=== PATIENT | female | born 1955 | race Caucasian/White ===

== ENCOUNTER 2016-07-02 11:48 | Inpatient (IN) | payer MEDICAID ==
[~2016-07-02] VITALS: Ht 165.1 cm; Wt 126.0 kg
[~2016-07-02 11:48] MED LIST: ALBU0.084 IN; ASPI-264 PO; DOCU-94 PO; GLIP-115 PO; HYDR-3028 PO; LISI10TA6 PO; OMEP20TA44 PO; [UNRECOGNIZED DRUG - OTHER] PO
[2016-07-02] MEDS ORDERED: ONDANSETRON HCL 4 MG/2 ML VIAL IV ONE (12:00)
[2016-07-02] MEDS ORDERED: MORPHINE SULFATE 4 MG/ML SYRG IV ONE (12:00)
[2016-07-02 13:09] LABS: Basophils # (auto) 0 uL; Basophils % (auto) 0.5 % (0.0-2.0); Eosinophils # (auto) 0.2 uL; Eosinophils % (auto) 2.2 % (0.0-7.0); Hematocrit 36.7 % (36.0-46.0); Hemoglobin 12.1 g/dL (12.2-16.2); Lymphocytes # (auto) 1.7 uL; Lymphocytes % (auto) 20.2 % (10.0-50.0); Mean Corpuscular Hemoglobin 28.1 pg (28.0-32.0); Mean Corpuscular Hgb Conc. 32.9 g/dL (32.0-36.0); Mean Corpuscular Volume 85.5 fL (80.0-100.0); Mean Platelet Volume 8.5 fL (7.4-10.4); Monocytes % (auto) 11.9 % (0.0-12.0); Neutrophils # (auto) 5.6 uL; Neutrophils % (auto) 65.2 % (37.0-80.0); Platelet Count (auto) 374 10^3/uL (140-450); Red Cell Distribution Width 14.3 % (11.6-16.0); White Blood Cell 8.6 10^3/uL (4.4-10.8)
[2016-07-02 13:14] LABS: Albumin 3.9 g/dL (3.4-5.0); Anion Gap 12 (5-15); Aspartate Aminotransferase 14 U/L (15-37); BUN/Creatinine Ratio 13.4; Blood Urea Nitrogen 16 mg/dL (7-18); Calcium 9.1 mg/dL (8.5-10.1); Carbon Dioxide 25 mmol/L (21-32); Chloride 105 mmol/L (98-107); GFR African American 60 mL/min; GFR Non-African American 49 mL/min; Glucose 127 mg/dL (74-106); Magnesium 2.4 mg/dL (1.6-2.6); Potassium 3.8 mmol/L (3.5-5.1); Sodium 142 mmol/L (136-145)
[2016-07-02 13:19] LABS: Alkaline Phosphatase 81 U/L (45-117); B-Type Natriuretic Peptide 38.53 pg/mL (0-100); Bilirubin, Total 0.6 mg/dL (0.2-1.0); Total Protein 7.5 g/dL (6.4-8.2)
[2016-07-02 13:28] LABS: INR 0.95 (0.9-1.15); Prothrombin Time 10.3 sec (9.37-12.3)
[2016-07-02] MEDS ORDERED: DEXTROSE (50%) 50ML SYRG IV PRN (13:30)
[2016-07-02] MEDS ORDERED: POTASSIUM CHL 10 Meq TABLET PO ONE (13:45)
[2016-07-02] MEDS ORDERED: ZOLPIDEM TARTRATE 5 MG TAB PO PRN (13:45)
[2016-07-02] MEDS ORDERED: ONDANSETRON HCL 4 MG/2 ML VIAL IV PRN (13:45)
[2016-07-02] MEDS ORDERED: FUROSEMIDE 40 MG/4 ML VIAL IV ONE (13:45)
[2016-07-02] MEDS ORDERED: NITROGLYCERIN 0.4 MG SL TAB SL PRN ×2 (13:45)
[2016-07-02] MEDS ORDERED: MORPHINE SULF INJ 2 MG/ML SYRINGE 1ML IV PRN (13:45)
[2016-07-02] MEDS ORDERED: ACETAMINOPHEN 325 MG TAB PO PRN (13:45)
[2016-07-02] MEDS ORDERED: PANTOPRAZOLE 40 MG TAB PO ONE (14:00)
[2016-07-02] MEDS ORDERED: DOCUSATE SOD 100 MG CAP PO ONE (14:00)
[2016-07-02] MEDS ORDERED: LISINOPRIL 10 MG TAB PO ONE (14:00)
[2016-07-02] MEDS ORDERED: ASPirin-EC 325mg tab PO ONE (14:15)
[2016-07-02] MEDS ORDERED: CLOPIDOGREL BISULFATE 75 MG TAB PO ONE (14:15)
[2016-07-02] MEDS: LORazepam 0.5 MG TAB PO PRN ×2 (14:27→20:35)
[2016-07-02] MEDS: SODIUM CHLOR 0.9% PF (SALINE LOCK) 10ML VIAL IV SCH ×2 (14:27→22:06)
[2016-07-02 16:00] VITALS: BP 126/54
[2016-07-02] MEDS: InsuLIN REG 1unit/0.01ml Soln (100units/ml) SC SCH ×2 (16:46→22:00)
[2016-07-02] MEDS: ACCU-CHEK COMFORT CURVE STRIP VI SCH ×2 (16:46→22:06)
[2016-07-02 17:00] VITALS: BP_SYST 126; BP_SYST 148; BP_DIAS 102; BP_DIAS 54
[2016-07-02] MEDS: MORPHINE SULF INJ 2 MG/ML SYRINGE 1ML IV PRN (17:41)
[2016-07-02] MEDS: ALBUTEROL SULF 2.5 MG/0.5ML(0.5%) NEB SOLN NEB SCH (17:55)
[2016-07-02] MEDS ORDERED: cloNIDine HCL 0.1 MG TAB PO PRN (20:45)
[2016-07-02 22:00] VITALS: BP 101/57
[2016-07-02] MEDS: CARVEDILOL 3.125 MG TAB PO SCH (22:06)
[2016-07-02] MEDS: ATORVASTATIN 20 MG TAB PO SCH (22:06)
[2016-07-02 23:00] LABS: Urine Bilirubin Negative (Negative); Urine Blood Negative /uL (Negative); Urine Ca Oxalate Crystal MOD (None Seen); Urine Color Yellow (Yellow); Urine Glucose Normal (Normal); Urine Hyaline Cast FEW /lpf (0 - 2); Urine Ketone Negative (Negative); Urine Mucus FEW (None Seen); Urine Nitrite Negative (Negative); Urine RBC <1 /hpf (0 - 4); Urine Squamous Epithelial Cell FEW /hpf (<5); Urine pH 5.5 (5.0-8.0)
[2016-07-03] VITALS (7 sets, daily range): BP systolic 98–131; BP diastolic 51–62
[2016-07-03] MEDS: ALBUTEROL SULF 2.5 MG/0.5ML(0.5%) NEB SOLN NEB SCH ×4 (01:24→18:00)
[2016-07-03] MEDS: SODIUM CHLOR 0.9% PF (SALINE LOCK) 10ML VIAL IV SCH ×3 (06:09→22:06)
[2016-07-03] MEDS: glipiZIDE 5 MG TAB PO SCH (06:40)
[2016-07-03] MEDS: InsuLIN REG 1unit/0.01ml Soln (100units/ml) SC SCH ×4 (06:40→22:00)
[2016-07-03] MEDS: ACCU-CHEK COMFORT CURVE STRIP VI SCH ×4 (06:40→22:07)
[2016-07-03 06:44] LABS: Basophils # (auto) 0.1 uL; Basophils % (auto) 0.7 % (0.0-2.0); Eosinophils # (auto) 0.3 uL; Eosinophils % (auto) 3.8 % (0.0-7.0); Hematocrit 35.3 % (36.0-46.0); Hemoglobin 11.7 g/dL (12.2-16.2); Lymphocytes # (auto) 2.1 uL; Lymphocytes % (auto) 26.2 % (10.0-50.0); Mean Corpuscular Hemoglobin 28.6 pg (28.0-32.0); Mean Corpuscular Hgb Conc. 33.3 g/dL (32.0-36.0); Mean Corpuscular Volume 86.1 fL (80.0-100.0); Mean Platelet Volume 8.6 fL (7.4-10.4); Monocytes # (auto) 0.8 uL; Monocytes % (auto) 9.6 % (0.0-12.0); Neutrophils # (auto) 4.8 uL; Neutrophils % (auto) 59.7 % (37.0-80.0); Platelet Count (auto) 359 10^3/uL (140-450); Red Cell Distribution Width 14.5 % (11.6-16.0)
[2016-07-03 07:14] LABS: Albumin 3.7 g/dL (3.4-5.0); BUN/Creatinine Ratio 13.8; Bilirubin, Total 0.7 mg/dL (0.2-1.0); Calcium 9.2 mg/dL (8.5-10.1); Magnesium 2.6 mg/dL (1.6-2.6); Total Protein 7.2 g/dL (6.4-8.2)
[2016-07-03] MEDS: FUROSEMIDE 40 MG/4 ML VIAL IV SCH (09:49)
[2016-07-03] MEDS: ASPirin-EC 325mg tab PO SCH (09:49)
[2016-07-03] MEDS: DOCUSATE SOD 100 MG CAP PO SCH (09:50)
[2016-07-03] MEDS: CLOPIDOGREL BISULFATE 75 MG TAB PO SCH (09:50)
[2016-07-03] MEDS: PANTOPRAZOLE 40 MG TAB PO SCH (09:50)
[2016-07-03] MEDS: POTASSIUM CHL 10 Meq TABLET PO SCH (09:51)
[2016-07-03] MEDS: CARVEDILOL 3.125 MG TAB PO SCH ×2 (09:51→22:00)
[2016-07-03] MEDS: LISINOPRIL 10 MG TAB PO SCH (09:52)
[2016-07-03] MEDS ORDERED: BUMETANIDE 1 MG TAB PO SCH (10:00)
[2016-07-03] MEDS ORDERED: BUMETANIDE 2 MG TABLET PO SCH (10:00)
[2016-07-03] MEDS ORDERED: BUMETANIDE 1 MG TAB PO ONE (10:15)
[2016-07-03] MEDS: ATORVASTATIN 20 MG TAB PO SCH (22:07)
[2016-07-03] MEDS: MORPHINE SULF INJ 2 MG/ML SYRINGE 1ML IV PRN (22:08)
[2016-07-03] MEDS: LORazepam 0.5 MG TAB PO PRN (23:12)
[2016-07-04] VITALS (7 sets, daily range): BP systolic 110–155; BP diastolic 56–73
[2016-07-04] MEDS: HYDROcodone-ACET 10/325MG TAB PO PRN ×3 (01:52→21:34)
[2016-07-04] MEDS: ALBUTEROL SULF 2.5 MG/0.5ML(0.5%) NEB SOLN NEB SCH ×4 (06:00→18:16)
[2016-07-04] MEDS: SODIUM CHLOR 0.9% PF (SALINE LOCK) 10ML VIAL IV SCH ×3 (06:27→21:33)
[2016-07-04] MEDS: glipiZIDE 5 MG TAB PO SCH (06:28)
[2016-07-04] MEDS: ACCU-CHEK COMFORT CURVE STRIP VI SCH ×4 (06:29→21:34)
[2016-07-04] MEDS: InsuLIN REG 1unit/0.01ml Soln (100units/ml) SC SCH ×4 (06:29→21:34)
[2016-07-04] MEDS ORDERED: BUMETANIDE 1 MG TAB PO SCH (10:00)
[2016-07-04] MEDS: CARVEDILOL 3.125 MG TAB PO SCH ×2 (10:00→21:34)
[2016-07-04] MEDS: ASPirin-EC 325mg tab PO SCH (10:00)
[2016-07-04] MEDS: FUROSEMIDE 40 MG/4 ML VIAL IV SCH (10:00)
[2016-07-04] MEDS: LORazepam 0.5 MG TAB PO PRN (12:41)
[2016-07-04] MEDS: POTASSIUM CHL 10 Meq TABLET PO SCH (12:46)
[2016-07-04] MEDS: PANTOPRAZOLE 40 MG TAB PO SCH (12:46)
[2016-07-04] MEDS: DOCUSATE SOD 100 MG CAP PO SCH (12:46)
[2016-07-04] MEDS: CLOPIDOGREL BISULFATE 75 MG TAB PO SCH (12:47)
[2016-07-04] MEDS: BUMETANIDE 1 MG TAB PO SCH (12:48)
[2016-07-04] MEDS: LISINOPRIL 10 MG TAB PO SCH (12:48)
[2016-07-04] MEDS: ATORVASTATIN 20 MG TAB PO SCH (21:33)
[2016-07-04] MEDS ORDERED: DOCUSATE SOD 100 MG CAP PO SCH (22:00)
[2016-07-05] MEDS: ALBUTEROL SULF 2.5 MG/0.5ML(0.5%) NEB SOLN NEB SCH ×3 (00:09→11:38)
[2016-07-05 04:38] VITALS: BP 105/58
[2016-07-05] MEDS: ACCU-CHEK COMFORT CURVE STRIP VI SCH ×3 (06:19→17:00)
[2016-07-05] MEDS: SODIUM CHLOR 0.9% PF (SALINE LOCK) 10ML VIAL IV SCH ×2 (06:19→14:00)
[2016-07-05] MEDS: glipiZIDE 5 MG TAB PO SCH (06:19)
[2016-07-05] MEDS: InsuLIN REG 1unit/0.01ml Soln (100units/ml) SC SCH ×3 (06:20→17:00)
[2016-07-05] MEDS: LORazepam 0.5 MG TAB PO PRN (08:26)
[2016-07-05] MEDS ORDERED: ADENOSINE 106 MG in GIVE UN-DILUTED 0 ML IV STA (08:29)
[2016-07-05 08:41] VITALS: BP 102/51
[2016-07-05] MEDS: FUROSEMIDE 40 MG/4 ML VIAL IV SCH (10:00)
[2016-07-05] MEDS: POTASSIUM CHL 10 Meq TABLET PO SCH (10:00)
[2016-07-05] MEDS: BUMETANIDE 1 MG TAB PO SCH (10:00)
[2016-07-05] MEDS: CARVEDILOL 3.125 MG TAB PO SCH (10:00)
[2016-07-05] MEDS: LISINOPRIL 10 MG TAB PO SCH (10:00)
[2016-07-05] MEDS: MORPHINE SULF INJ 2 MG/ML SYRINGE 1ML IV PRN (10:30)
[2016-07-05 12:48] VITALS: BP 95/73
[2016-07-05] MEDS: PANTOPRAZOLE 40 MG TAB PO SCH (12:58)
[2016-07-05] MEDS: ASPirin-EC 325mg tab PO SCH (12:58)
[2016-07-05] MEDS: CLOPIDOGREL BISULFATE 75 MG TAB PO SCH (12:58)
[2016-07-05 16:24] VITALS: BP 101/70
== END 2016-07-05 18:50 | disposition home or self-care (01) | DRG 198 ==
LOC: EDUNIT# 11:48 → EDBD 11:48 → ER 11:48 → TELE 11:49 → TELE-CENTR 16:17
PROVIDERS: ADMIT Internal Medicine; ATTEND Internal Medicine Pulmonary Disease
DX: R07.9 Chest pain, unspecified (principal); I24.9 Acute ischemic heart disease, unspecified; I50.43 Acute on chronic combined systolic (congestive) and diastolic (congestive) heart failure; E11.21 Type 2 diabetes mellitus with diabetic nephropathy; N18.3 Chronic kidney disease, stage 3 (moderate); Z68.42 Body mass index [BMI] 45.0-49.9, adult; E11.22 Type 2 diabetes mellitus with diabetic chronic kidney disease; I25.2 Old myocardial infarction; I13.0 Hypertensive heart and chronic kidney disease with heart failure and stage 1 through stage 4 chronic kidney disease, or unspecified chronic kidney disease; E66.9 Obesity, unspecified; E78.5 Hyperlipidemia, unspecified; D63.8 Anemia in other chronic diseases classified elsewhere; E66.01 Morbid (severe) obesity due to excess calories; I25.10 Atherosclerotic heart disease of native coronary artery without angina pectoris; Z83.3 Family history of diabetes mellitus; Z86.711 Personal history of pulmonary embolism; Z95.5 Presence of coronary angioplasty implant and graft; Z88.0 Allergy status to penicillin; Z88.8 Allergy status to other drugs, medicaments and biological substances; Z79.4 Long term (current) use of insulin; Z71.89 Other specified counseling; Z90.10 Acquired absence of unspecified breast and nipple
CPT/HCPCS: 36415; 71010; 78452; 80053; 80061; 81001; 82962; 83036; 83735; 83880; 84484; 85025; 85379; 85610; 85730; 87081; 87086; 93005; 93017; 93306; 94640; 94761; 96374; 96375; J0153; J2405

== ENCOUNTER 2016-10-22 14:05 | Inpatient (IN) | payer MEDICAID ==
[~2016-10-22] VITALS: Ht 165.1 cm; Wt 139.2 kg
[2016-10-22 17:53] LABS: Basophils # (auto) 0 uL; Basophils % (auto) 0.3 % (0.0-2.0); CONDITION Y; Eosinophils # (auto) 0.3 uL; Hematocrit 40.2 % (36.0-46.0); Hemoglobin 13.4 g/dL (12.2-16.2); Lymphocytes # (auto) 2.7 uL; Mean Corpuscular Hemoglobin 28.7 pg (28.0-32.0); Mean Corpuscular Hgb Conc. 33.4 g/dL (32.0-36.0); Mean Corpuscular Volume 85.9 fL (80.0-100.0); Mean Platelet Volume 8.2 fL (7.4-10.4); Monocytes # (auto) 1.2 uL; Monocytes % (auto) 8.1 % (0.0-12.0); Neutrophils % (auto) 70.6 % (37.0-80.0); Platelet Count (auto) 423 10^3/uL (140-450); Red Cell Distribution Width 14.2 % (11.6-16.0); White Blood Cell 14.2 10^3/uL (4.4-10.8)
[2016-10-22 18:21] LABS: Albumin 3.7 g/dL (3.4-5.0); Bilirubin, Total 0.4 mg/dL (0.2-1.0); Calcium 9.4 mg/dL (8.5-10.1); Potassium 3.3 mmol/L (3.5-5.1); Total Protein 7.8 g/dL (6.4-8.2)
[2016-10-22] MEDS ORDERED: cefTRIAXone 1GM/50ML D5W 50 ML IV ONE (18:30)
[2016-10-22 18:47] LABS: INR 0.92 (0.9-1.15); Partial Thromboplastin Time 23.4 sec (22.64-33.71)
[2016-10-22 19:00] LABS: Lactic Acid w/Reflex 2.4 mmol/L (0.4-2.0)
[2016-10-22 19:36] LABS: REFLEX LACTIC ACID YES OR NO YES
[2016-10-22] MEDS ORDERED: POTASSIUM CHL 20 Meq TABLET PO ONE (19:45)
[2016-10-22] MEDS ORDERED: ACETAMINOPHEN 325 MG TAB PO PRN (21:15)
[2016-10-22] MEDS ORDERED: ONDANSETRON HCL 4 MG/2 ML VIAL IV PRN (21:15)
[2016-10-22] MEDS ORDERED: DEXTROSE (50%) 50ML SYRG IV PRN (21:15)
[2016-10-22] MEDS: GABAPENTIN 300 MG CAP PO SCH (22:00)
[2016-10-22] MEDS ORDERED: PATIENTS OWN MEDICATION (simvastatin 20 MG) PO SCH ×2 (22:00)
[2016-10-22] MEDS: FAMOTIDINE 20 MG TAB PO SCH (22:00)
[2016-10-23] VITALS (7 sets, daily range): BP systolic 112–154; BP diastolic 42–71
[2016-10-23] MEDS: HYDROcodone-ACET 10/325MG TAB PO PRN ×3 (01:27→23:28)
[2016-10-23] MEDS: TEMAZEPAM 15 MG CAP PO PRN ×2 (01:27→23:28)
[2016-10-23] MEDS ORDERED: SIMV-8 PO (04:16)
[2016-10-23] MEDS ORDERED: BUSP10TA90 PO (04:16)
[2016-10-23] MEDS ORDERED: GABA-339 PO (04:16)
[2016-10-23] MEDS ORDERED: MULT-228 PO (04:16)
[2016-10-23] MEDS ORDERED: ALBU2TAB4 PO (04:16)
[2016-10-23] MEDS ORDERED: BUME2TAB3 PO (04:16)
[2016-10-23] MEDS ORDERED: FURO40TA PO (04:16)
[2016-10-23] MEDS ORDERED: SPIR25TA88 PO (04:16)
[2016-10-23] MEDS: ACCU-CHEK COMFORT CURVE STRIP VI SCH ×5 (05:45→21:43)
[2016-10-23] MEDS: GABAPENTIN 300 MG CAP PO SCH ×3 (05:45→21:43)
[2016-10-23] MEDS: InsuLIN REG 1unit/0.01ml Soln (100units/ml) SC SCH ×5 (05:45→21:43)
[2016-10-23] MEDS: ALBUTEROL SULF 2.5 MG/0.5ML(0.5%) NEB SOLN NEB PRN ×3 (07:23→22:05)
[2016-10-23 07:59] LABS: Basophils # (auto) 0 uL; Basophils % (auto) 0.4 % (0.0-2.0); CONDITION Y; Eosinophils # (auto) 0.2 uL; Eosinophils % (auto) 2.5 % (0.0-7.0); Hematocrit 37.1 % (36.0-46.0); Hemoglobin 12.5 g/dL (12.2-16.2); Lymphocytes # (auto) 3.1 uL; Lymphocytes % (auto) 31.3 % (10.0-50.0); Mean Corpuscular Hemoglobin 28.9 pg (28.0-32.0); Mean Corpuscular Hgb Conc. 33.8 g/dL (32.0-36.0); Mean Corpuscular Volume 85.5 fL (80.0-100.0); Mean Platelet Volume 7.9 fL (7.4-10.4); Monocytes # (auto) 0.9 uL; Monocytes % (auto) 9.6 % (0.0-12.0); Neutrophils # (auto) 5.6 uL; Neutrophils % (auto) 56.2 % (37.0-80.0); Platelet Count (auto) 370 10^3/uL (140-450); Red Cell Distribution Width 14.2 % (11.6-16.0); White Blood Cell 9.9 10^3/uL (4.4-10.8)
[2016-10-23 08:24] LABS: Albumin 3.5 g/dL (3.4-5.0); BUN/Creatinine Ratio 16.2; Calcium 8.7 mg/dL (8.5-10.1); Potassium 3.4 mmol/L (3.5-5.1)
[2016-10-23 08:26] LABS: Bilirubin, Total 0.3 mg/dL (0.2-1.0); Total Protein 7.3 g/dL (6.4-8.2)
[2016-10-23] MEDS: ENOXAPARIN SOD 40 MG/0.4 ML SYRINGE SC SCH (09:32)
[2016-10-23] MEDS: FAMOTIDINE 20 MG TAB PO SCH ×2 (09:32→21:43)
[2016-10-23] MEDS: FUROSEMIDE 20 MG TAB PO SCH (09:33)
[2016-10-23] MEDS: SPIRONOLACTONE 25 MG TAB PO SCH (09:33)
[2016-10-23 10:17] LABS: Urine Bilirubin Negative (Negative); Urine Blood Negative /uL (Negative); Urine Color Yellow (Yellow); Urine Glucose Normal (Normal); Urine Ketone Negative (Negative); Urine Nitrite Negative (Negative); Urine RBC 1 /hpf (0 - 4); Urine Squamous Epithelial Cell FEW /hpf (<5); Urine Urobilinogen Normal (Negative); Urine pH 5.5 (5.0-8.0)
[2016-10-23] MEDS ORDERED: LEVOFLOXACIN 500MG 100 ML IV ONE (14:00)
[2016-10-23] MEDS ORDERED: POTASSIUM CHL 20 Meq TABLET PO ONE (14:00)
[2016-10-23] MEDS ORDERED: DEXTROSE (50%) 50ML SYRG IV PRN (14:00)
[2016-10-23] MEDS: SODIUM CHLORIDE 0.9% 1,000 ML IV SCH (14:42)
[2016-10-23] MEDS ORDERED: cefTRIAXone 1GM/50ML D5W 50 ML IV SCH (21:00)
[2016-10-23] MEDS ORDERED: ATORVASTATIN 20 MG TAB PO SCH (22:00)
[2016-10-23] MEDS: DOCUSATE SOD 100 MG CAP PO SCH (22:03)
[2016-10-24 05:00] VITALS: BP 136/65
[2016-10-24] MEDS: GABAPENTIN 300 MG CAP PO SCH ×2 (06:26→14:00)
[2016-10-24] MEDS: InsuLIN REG 1unit/0.01ml Soln (100units/ml) SC SCH ×2 (06:27→11:30)
[2016-10-24] MEDS: ACCU-CHEK COMFORT CURVE STRIP VI SCH ×2 (06:27→14:25)
[2016-10-24] MEDS: SODIUM CHLORIDE 0.9% 1,000 ML IV SCH (06:27)
[2016-10-24 06:37] LABS: Calcium 9.1 mg/dL (8.5-10.1); Potassium 3.7 mmol/L (3.5-5.1)
[2016-10-24 09:00] VITALS: BP 150/61
[2016-10-24] MEDS: ENOXAPARIN SOD 40 MG/0.4 ML SYRINGE SC SCH (09:55)
[2016-10-24] MEDS: DOCUSATE SOD 100 MG CAP PO SCH (09:55)
[2016-10-24] MEDS: FUROSEMIDE 20 MG TAB PO SCH (09:56)
[2016-10-24] MEDS: SPIRONOLACTONE 25 MG TAB PO SCH (09:56)
[2016-10-24] MEDS: FAMOTIDINE 20 MG TAB PO SCH (09:56)
[2016-10-24] MEDS: HYDROcodone-ACET 10/325MG TAB PO PRN (09:56)
[2016-10-24] MEDS ORDERED: LEVOFLOXACIN 500MG 100 ML IV SCH (10:00)
[2016-10-24] MEDS: ALBUTEROL SULF 2.5 MG/0.5ML(0.5%) NEB SOLN NEB PRN (10:21)
[2016-10-24] MEDS ORDERED: MORPHINE SULF INJ 2 MG/ML SYRINGE 1ML IV ONE (10:30)
[2016-10-24] MEDS ORDERED: SACC250C PO (11:27)
[2016-10-24] MEDS ORDERED: LEVO500T21 PO (11:27)
[2016-10-24 12:36] VITALS: BP 139/86
[2016-10-24 13:00] VITALS: BP 119/70
== END 2016-10-24 16:09 | disposition home or self-care (01) | DRG 140 ==
LOC: ER 14:05 → OVERFLOW 14:06 → WEST WING 10-23 00:55
PROVIDERS: ADMIT Nurse Practitioner; ATTEND Internal Medicine
DX: J44.0 Chronic obstructive pulmonary disease with (acute) lower respiratory infection (principal); N17.0 Acute kidney failure with tubular necrosis; E11.21 Type 2 diabetes mellitus with diabetic nephropathy; Z68.43 Body mass index [BMI] 50.0-59.9, adult; E66.01 Morbid (severe) obesity due to excess calories; E87.6 Hypokalemia; J20.9 Acute bronchitis, unspecified; J44.1 Chronic obstructive pulmonary disease with (acute) exacerbation; E78.5 Hyperlipidemia, unspecified; F17.210 Nicotine dependence, cigarettes, uncomplicated; I10 Essential (primary) hypertension; Z82.49 Family history of ischemic heart disease and other diseases of the circulatory system; Z83.3 Family history of diabetes mellitus; Z88.1 Allergy status to other antibiotic agents; Z88.0 Allergy status to penicillin; Z88.8 Allergy status to other drugs, medicaments and biological substances; Z90.49 Acquired absence of other specified parts of digestive tract
CPT/HCPCS: 36415; 71020; 80048; 80053; 81001; 82962; 83036; 83605; 83735; 85025; 85379; 85610; 85730; 87040; 93005; 94640; 94761; 96365; J0696; J1956

== ENCOUNTER 2021-10-06 13:04 | Emergency (ER) | payer MEDICAID ==
[~2021-10-06] VITALS: Ht 167.6 cm; Wt 120.3 kg
[~2021-10-06 13:04] MED LIST changes: +ALBU2TAB4 PO; -ASPI-264 PO; +ASPI325T33 PO; +BUME2TAB5 PO; +BUSP10TA90 PO; +FURO1TAB31 PO; +GABA-339 PO; -GLIP-115 PO; +LEVO500T31 PO; -LISI10TA6 PO; +MULT-228 PO; +SACC250C PO; +SIMV-8 PO; +SPIR25TA PO; -[UNRECOGNIZED DRUG - OTHER] PO
[2021-10-06 15:42] LABS: Urine Bacteria FEW /hpf (None Seen); Urine Blood Negative /uL (Negative); Urine Specific Gravity 1.015 (1.001-1.035); Urine WBC 88 /hpf (0 - 5)
[2021-10-06 16:00] VITALS: BP 116/68
== END 2021-10-06 16:25 | disposition home or self-care (01) ==
LOC: ER 13:04
DX: E11.65 Type 2 diabetes mellitus with hyperglycemia (principal); I12.9 Hypertensive chronic kidney disease with stage 1 through stage 4 chronic kidney disease, or unspecified chronic kidney disease; E11.22 Type 2 diabetes mellitus with diabetic chronic kidney disease; N18.9 Chronic kidney disease, unspecified; E78.5 Hyperlipidemia, unspecified; F17.210 Nicotine dependence, cigarettes, uncomplicated; Z90.49 Acquired absence of other specified parts of digestive tract; Z79.82 Long term (current) use of aspirin; Z79.899 Other long term (current) drug therapy; Z88.0 Allergy status to penicillin; Z88.1 Allergy status to other antibiotic agents; Z88.8 Allergy status to other drugs, medicaments and biological substances
CPT/HCPCS: 36600; 81001; 82805

== ENCOUNTER 2024-05-24 19:16 | Emergency (ER) | payer MEDICARE, MEDICAID ==
[~2024-05-24] VITALS: Ht 165.1 cm; Wt 126.8 kg
[~2024-05-24 19:16] MED LIST changes: +ALBU2TAB11 PO; -ALBU2TAB4 PO; +ASPI1TAB38 PO; -ASPI325T33 PO; -SIMV-8 PO; +SIMV20TA20 PO
[2024-05-24] MEDS: DexAMETHasone SOD PHOS 10MG/1ML VIAL INJ IM ONE (20:59)
[2024-05-24] MEDS: KETOROLAC TROMETH 60MG/2ML VIAL IM ONE (21:00)
[2024-05-24 21:08] VITALS: BP 145/103; PULSE 108; RESP 19; TEMP 99.1; O2SAT 95
[2024-05-24 21:24] LABS: Rapid Strep A Screen-Throat Negative
[2024-05-24] MEDS ORDERED: ACET500T58 PO (22:25)
[2024-05-24] MEDS ORDERED: IBUP-1455 PO (22:25)
[2024-05-24] MEDS ORDERED: CIPR1SUS8 OT (22:25)
--- NOTE | 2024-05-24 22:26 | ED.PDOC ---
Eye-HPI HPI Comments This patient is a morbidly obese 69-year-old female who arrives the ED today for evaluation of a sore throat and right-sided ear pain that began this morning has continued throughout the day. Patient denies any fever nausea or vomiting. Patient states the symptoms came on and have only worsened. Vital signs were stable on arrival. Chief Complaint: Earache Time Seen by MD: 19:23 Primary Care Provider: BALTA Reviewed Notes: Nurses Notes Allergies: Coded Allergies: Penicillins (Unverified Allergy, Severe, RASH, 07/02/16) Ampicillin (Verified Allergy, Mild, 01/30/10) Diphenhydramine (Verified Allergy, Mild, 01/30/10) Penicillin V (Verified Allergy, Mild, 01/30/10) Home Meds Active Scripts Yeast (S. Boulardii)(S. Cerevi (Florastor) 250 Mg Cap, 250 MG PO DAILY, #10 CAP Prov:VAISHALI GARCIA MD 10/24/16 Levofloxacin (Levaquin) 500 Mg Tab, 500 MG PO DAILY, #7 TAB Prov:VAISHALI GARCIA MD 10/24/16 Reported Medications Spironolactone (Aldactone) 25 Mg Tab, 25 MG PO BID, TAB 10/23/16 Bumetanide (Bumetanide) 2 Mg Tab, 2 MG PO DAILY for 30 Days, MG 10/23/16 Albuterol Sulfate (Albuterol Sulfate) 2 Mg Tab, 8 MG PO BID PRN for SHORTNESS OF BREATH, MG 10/23/16 Furosemide (Lasix) 40 Mg Tab, 40 MG PO BID, TAB 10/23/16 Simvastatin (Simvastatin) 20 Mg Tab, 20 MG PO HS, TAB 10/23/16 Multiple Vitamin (Multi-Day Vitamins) Vitamins Tab, PO DAILY, #30 TAB 10/23/16 Buspirone Hcl (Buspirone Hcl) 10 Mg Tab, 10 MG PO TID for 30 Days, MG 10/23/16 Gabapentin (Gabapentin) 600 Mg Tab, 600 MG PO TID for 30 Days, MG 10/23/16 Albuterol Sulfate (Albuterol Sulfate) 0.083 % Neb, 0.083 % IN PRN 04/15/12 Hydrocodone-Acetaminophen (HYDROCODONE BITARTRATE/AC) 1 Tab Tab, 10-325 TAB PO HS 2 TABS Q HS 04/15/12 Docusate Sodium (Colace) 100 Mg Cap, 100 MG PO BID 04/15/12 Aspirin (Aspirin) 325 Mg Tab, 325 MG PO DAILY Discuss with primary MD 04/15/12 Omeprazole ([facility] Omeprazole) 20 Mg Tab, 20 MG PO DAILY 04/15/12 Information Source: Patient Mode of Arrival: Wheelchair Timing: Hours Duration: Since onset Prehospital treatment: None Quality: Pain ENT Ear Exam: Swelling Onset: Spontaneous Past Medical History PAST MEDICAL HISTORY: CKF, DM, High Lipids, HTN Surgical History: Appendectomy, , Tubal Ligation Family History Family History: Unobtainable Social History Smoker: Cigarettes, Less Than 1 Pack/Day Alcohol: Denies ETOH Use Drugs: Denies Drug Use Lives In: Home Constitutional: denies: chills, diaphoresis, fatigue, fever, malaise, sweats, weakness, others EENTM: reports: eye pain, throat pain; denies: blurred vision, double vision, ear bleeding, ear discharge, ear drainage, ear pain, ear ringing, eye redness, hearing loss, mouth pain, mouth swelling, nasal discharge, nose bleeding, nose congestion, nose pain, photophobia, tearing, throat swelling, voice changes, others Respiratory: denies: cough, hemoptysis, orthopnea, SOB at rest, shortness of breath, SOB with excertion, stridor, wheezing, others Cardiovascular: denies: chest pain, dizzy spells, diaphoresis, Dyspnea on exertion, edema, irregular heart beat, left arm pain, lightheadedness, palpitations, PND, syncope, others Gastrointestinal: denies: abdomen distended, abdominal pain, blood streaked bowels, constipated, diarrhea, dysphagia, difficulty swallowing, hematemesis, melena, nausea, poor appetite, poor fluid intake, rectal bleeding, rectal pain, vomiting, others Genitourinary: denies: abnormal vagina bleeding, burning, dyspareunia, dysuria, flank pain, frequency, hematuria, incontinence, pain, , vagina discharge, urgency, others Neurological: denies: dizziness, fainting, headache, left sided numbness, left sided weakness, numbness, paresthesia, pre-existing deficit, right sided numbness, right sided weakness, seizure, speech problems, tingling, tremors, weakness, others Musculoskeletal: denies: back pain, gout, joint pain, joint swelling, muscle pain, muscle stiffness, neck pain, others Integumetry: denies: bruises, change in color, change in hair/nails, dryness, laceration, lesions, lumps, rash, wounds, others Allergic/Immunocompromised: denies: Difficulty Healing, Frequent Infections, Hives, Itching, others Hematologic/Lymphatic: denies: anemia, blood clots, easy bleeding, easy bruising, swollen glands, others Endocrine: denies: excessive hunger, excessive sweating, excessive thirst, excessive urination, flushing, intolerance to cold, intolerance to heat, unexplained weight gain, unexplained weight loss, others Psychiatric: denies: anxiety, bipolar disorder, depression, hopeless, panic disorder, schizophrenia, sleepless, suicidal, others Physical Exam General Appearance: Moderate Distress (Due to throat and ear pain concerns.), Obese HEENT: Pharyngeal Erythema ( Coph-[id number]-ervnssjcze beefy oropharynx with mild bilateral tonsillar pillar involvement. No exudate noted. Airway is patent.), TMs Normal, Other ( Right canal reveals mild edema and erythema. Scant debris noted. TM is mildly bulging.) Neck: Full Range of Motion, Non-Tender, Normal, Normal Inspection Respiratory: Chest Non-Tender, Lungs Clear, No Accessory Muscle Use, No Respiratory Distress, Normal Breath Sounds Cardiovascular: No Edema, No JVD, No Murmur, No Gallop, Normal Peripheral Pulses, Regular Rate/Rhythm Breast Exam: Deferred Gastrointestinal: No Organomegaly, Non Tender, No Pulsatile Mass, Normal Bowel Sounds, Soft Genitalia: Deferred Pelvic: Deferred Rectal: Deferred Extremities: No calf tenderness, Normal capillary refill, Normal inspection, Normal range of motion, Non-tender, No pedal edema Neurologic: Alert, No Motor Deficits, Normal Affect, Normal Mood, No Sensory Deficits Cerebellar Function: Normal Reflexes: Normal Skin: Dry, Normal Color, Warm Lymphatic: No Adenopathy Was a procedure done? Was a procedure done?: No EENT DIFF Eye: N/A Sore Throat: Other ( Streptococcal pharyngitis, viral pharyngitis, otitis media, otitis externa, ear pain) X-Ray, Labs, Meds, VS Vital Signs Date Time Temp Pulse Resp B/P (MAP) Pulse Ox O2 Delivery O2 Flow Rate FiO2 3/29/25 21:08 99.1 108 19 145/103 (117) 95 99.1 05/24/24 21:08 108 19 95 Room Air 05/24/24 19:48 98.4 99 20 124/64 (84) 94 98.4 Lab Test 05/24/24 21:01 Range/Units Group A Streptococcus Rapid Negative Current Medications Medications (Trade) Dose Ordered Sig/Jered Route Start Time Stop Time Status Last Admin Ketorolac Tromethamine (Toradol Injection) 30 mg ONCE ONCE IM 05/24/24 19:45 05/24/24 19:46 DC 05/24/24 21:00 Dexamethasone Sodium Phosphate (Decadron Injection) 10 mg ONCE ONCE IM 05/24/24 19:45 05/24/24 19:46 DC 05/24/24 20:59 X-Ray, Labs, Meds, VS Comment All studies performed the ED were evaluated by me personally. Swabs studies were unremarkable for any streptococcal pharyngitis. I believe the patient has a an otitis media with a viral pharyngitis. Advise utilizing medication as directed until completion. Time of 1ST Reevaluation: 22:22 Reevaluation 1ST: Improved Consultation: PCP Patient Education/Counseling: Diagnosis, Treatment Family Education/Counseling: Diagnosis, Treatment Departure 1 Departure Time of Disposition: 22:22 Impression: Primary Impression: Otitis media Additional Impression: Viral pharyngitis Disposition: HOME / SELF CARE / HOMELESS Condition: Stable Additional Instructions: Advised patient utilize antibiotic ear drops as directed until completion as well as pain medication as needed. e-Prescriptions Acetaminophen (Acetaminophen) 500 Mg Tab 500 MG PO Q4HP PRN, #30 TAB Prov: TEJ LYONS PAC 05/24/24 Ibuprofen Micronized (Ibuprofen) 800 Mg Tab 800 MG PO Q8HP PRN, #20 TAB Prov: TEJ LYONS PAC 05/24/24 Ciprofloxacin-Dexamethasone (Ciprofloxacin/Dexamethaso 0.3-0.1 %) 1 Frida Frida 4 DROP OT BID for 7 Days, #2.5 ML Prov: TEJ LYONS PAC 05/24/24 Discharged With: Self, Relative Critical Care Note Critical Care Time?: No Stability Stability form required: No Heart Score Heart Score: Heart Score Response (Comments) Value History N/A 0 EKG N/A 0 Age N/A 0 Risk Factors N/A 0 Troponin N/A 0 Total 0 TEJ L[facility]ONS [facility] May 24, 2024 22:26
== END 2024-05-24 23:17 | disposition home or self-care (01) ==
LOC: ER 19:16
DX: J02.8 Acute pharyngitis due to other specified organisms (principal); H66.91 Otitis media, unspecified, right ear; B97.89 Other viral agents as the cause of diseases classified elsewhere; E11.9 Type 2 diabetes mellitus without complications; I12.9 Hypertensive chronic kidney disease with stage 1 through stage 4 chronic kidney disease, or unspecified chronic kidney disease; N17.9 Acute kidney failure, unspecified; E78.5 Hyperlipidemia, unspecified; F17.210 Nicotine dependence, cigarettes, uncomplicated; Z90.49 Acquired absence of other specified parts of digestive tract; Z88.0 Allergy status to penicillin; Z98.51 Tubal ligation status; Z88.1 Allergy status to other antibiotic agents; Z79.899 Other long term (current) drug therapy
CPT/HCPCS: 87070; 87880; 96372; 99284; J1100; J1885